=== PATIENT | female | born 1950 | race Caucasian/White ===

== ENCOUNTER → 2022-01-15 | Outpatient (CLI) | payer MEDICARE, BC ==
[~2022-01-15] MED LIST: CALCIUM PO; MAGNESIUM PO; PROTONIX20 MG PO; TURMERIC CURCUMIN PO; VITAMIN D3125 MCG PO
[2022-01-15 11:15] LABS: HEMOGLOBIN 11.5 gm/dl (12.3-15.3); RED BLOOD COUNT 4.38 M/UL (4.00-5.10); WHITE BLOOD COUNT 5.7 K/UL (4.5-11.0)
[2022-01-15 11:37] LABS: BUN/CREATININE RATIO 31 (0-10)
== END ==
LOC: OPSV2 10:00 → EDSTATUS 10:00 → OPSV2 10:24
PROVIDERS: Orthopaedic Surgery
DX: Z01.818 Encounter for other preprocedural examination (principal); M51.16 Intervertebral disc disorders with radiculopathy, lumbar region; M48.061 Spinal stenosis, lumbar region without neurogenic claudication; Z88.0 Allergy status to penicillin; Z88.8 Allergy status to other drugs, medicaments and biological substances
CPT/HCPCS: 36415; 71046; 80048; 81001; 85025; 85610; 85730; 87077; 87081; 87086; 87186; 93005

== ENCOUNTER → 2022-01-17 | Outpatient (CLI) | payer MEDICARE, BC | LOC: KOH-I 09:22 | DX: Z01.818 Encounter for other preprocedural examination (principal); M51.36 Other intervertebral disc degeneration, lumbar region; M43.16 Spondylolisthesis, lumbar region | CPT/HCPCS: 72131 ==

== ENCOUNTER → 2022-01-21 | Outpatient (CLI) | payer MEDICARE, BC ==
[~2022-01-21] MED LIST changes: +ASCORBIC ACID500 MG PO; +BACTRIM DS TAB1 EACH PO; +CAL-MAG TABLET1 EACH PO; -CALCIUM PO; -MAGNESIUM PO; +ROXICODONE5 MG PO
== END ==
LOC: LAB 12:48
PROVIDERS: Orthopaedic Surgery
DX: Z01.812 Encounter for preprocedural laboratory examination (principal)
CPT/HCPCS: 36415; 80048; 86850; 86900; 86901